=== PATIENT | female | born 1970 | race American Indian/Alaskan Native ===

== ENCOUNTER 2020-02-17 10:41 | Outpatient (CLI) | payer BC, SELFPAY ==
[2020-02-18 17:50] LABS: COVID-19 RT-PCR Result NEGATIVE (Negative)
== END 2020-02-17 11:01 ==
PROVIDERS: PCP Family Medicine; Visit Provider Family Medicine
DX: U07.1 COVID-19 (principal)
CPT/HCPCS: U0003

== ENCOUNTER 2021-08-30 09:19 | Emergency (ER) | payer BC, SELFPAY ==
[2021-08-30] VITALS (42 sets, daily range): BP systolic 90–131; BP diastolic 50–82; PULSE 59–88; RESP 13–25; TEMP 36.8–37.1; O2SAT 92–100
--- NOTE | 2021-08-30 09:15 | RT.EKG_ITS ---
APPROVED REPORT Exam: Resting ECG Reason for Exam: chest pain Patient Location: E HR:63 bpm ECG Measurements Heart Rate 63 AXIS SC 179 P 59 QRSd 78 QRS 39 QT 409 T 35 QTc 418 Conclusion Sinus rhythm...normal P axis, V-rate 60- 99 no STEMI, non-diagnostic EKG I have reviewed and interpreted ECG and agree with software generated interpretation.
--- NOTE | 2021-08-30 09:30 | DI.RAD_ITS ---
Exam(s) XR CHEST 2V PA LATERAL EXAM: XR CHEST 2V PA LATERAL CLINICAL HISTORY: chest pain TECHNIQUE: 2D digital imaging was performed. COMPARISON: No exams were available for comparison FINDINGS: MEDIASTINUM: Normal. HEART: Normal. PULMONARY VASCULATURE: Normal. LUNGS: Clear. PLEURAL SPACE: No pleural effusion or pneumothorax. BONE:Unremarkable for age. IMPRESSION: No acute abnormality. DATA REPOSITORY: RADIATION DOSE DELIVERED:
[2021-08-30 09:59] LABS: Abs Immature Grans 0.03 10^3/uL (0.0-0.06); Absolute Basophil Count 0.07 10^3/uL (0.0-0.2); Absolute Monocyte Count 0.96 10^3/uL (0.1-0.8); Absolute Neutrophil Count 5.63 10^3/uL (1.2-6.7); Basophils % 0.7; HCT 36.8 % (36.0-46.0); Immature Grans % 0.3; Lymphocytes % 33.7; MCH 27.2 pg (27.0-33.0); MCHC 32.6 % (32.0-36.0); MCV 83.4 fL (80-95); MPV 10.6 fL (8.0-11.0); Monocytes % 9.5; Neutrophils % 55.8; Nucleated RBC 0 %; Platelet Count 461 10^3/uL (130-400); RBC 4.41 10^6/uL (3.93-5.22); RDW 15.9 % (11.7-14.6); RDW-SD 46.8 fL; WBC 10.09 10^3/uL (4.4-10.8)
[2021-08-30] MEDS: Lidocaine 5% Patch 1 PATCH TP (10:09)
[2021-08-30 10:13] LABS: ALT 24 U/L (14-59); AST 17 U/L (15-37); Albumin 3.8 g/dL (3.4-5.0); Alkaline Phosphatase 40 U/L (46-116); Anion Gap 4.8 mmol/L (3-11); BUN 22 mg/dL (7-18); Bilirubin, Total 0.5 mg/dL (0.2-1.0); CO2 30.2 mmol/L (21.0-32.0); Calcium 8.5 mg/dL (8.5-10.1); Chloride 104 mmol/L (98-107); Estimated GFR 58.22 (mL/min/1.73m2); Glucose 113 mg/dL (74-106); Magnesium 2.3 mg/dL (1.8-2.4); Potassium 4.2 mmol/L (3.5-5.1); Sodium 139 mmol/L (136-145); Total Protein 6.5 g/dL (6.4-8.2); Troponin I < 50 ng/L (<or=60)
[2021-08-30 10:31] LABS: D-Dimer 602 ng/mlFEU (<500)
--- NOTE | 2021-08-30 10:39 | ED.GENADUL_ITS ---
Discharge Plan Disposition Patient Disposition: HOME Condition: Stable Discharge Details Clinical Impression: Atypical chest pain Primary Care Provider: Sendy Arana ED Provider: Yosvany Rojas Home Meds and New Rx's Prescriptions: Continued lamotrigine 150 mg tablet 150 mg PO DAILY 0RF Label Comments: Take 1 tablet by mouth daily. albuterol sulfate 2.5 mg /3 mL (0.083 %) solution for nebulization 2.5 mg inhalation Q4H PRN [id number] Label Comments: INHALE THE CONTENTS OF ONE VIAL VIA NEBULIZER EVERY 6 HOURS NEEDED FOR WHEEZING norethindrone ac-eth estradiol 1-5 mg-mcg tablet 1 tab PO DAILY 0RF Label Comments: take 1 tablet by mouth once daily albuterol sulfate 90 mcg/actuation HFA aerosol inhaler 2 inh INHALATION Q4H PRN [id number] Label Comments: INHALE ONE PUFF BY MOUTH EVERY 4 HOURS NEEDED FOR WHEEZING sertraline 50 mg tablet 50 mg PO DAILY 0RF Label Comments: Take 1 tablet by mouth daily. estradiol 10 mcg tablet 10 mcg VAGINAL DAILY 0RF Label Comments: insert 1 tablet vaginally two times a week Discharge Instructions Instructions: Chest Pain (ED) Additional Instructions: At this time your cardiac work-up was negative and no evidence of pulmonary involvement. There is high suspicion of chest wall pain secondary to recent activity. You may take ibuprofen as discussed and keep your follow-up appointment with your primary care provider next week. If you have any new or significant worsening of symptoms, worsening chest pain, or further concerns return to the emergency department for reassessment and further evaluation. Referrals: Sendy Arana [Primary Care Provider] - 1 week Discharge Data Discharge Date/Time-TO BE ENTERED AT DEPARTURE: 08/30/21 13:27 Medical Decision Making Patient presenting to the emergency department for chief complaint of worsening chest pain over the past 4 days. 5 days ago patient was playing basketball at work but denies any known injury or trauma. The next day patient noted some mild left-sided reproducible chest pain but also worsened with deep inspiration. 2 weeks ago patient had sensation of limited palpitations that have fully resolved. Pain has gotten progressively worse over the past 4 days with increasing left-sided pain, shortness of breath. Patient denies any history of hypertension, diabetes, hyperlipidemia, and is not a smoker. Physical exam does show reproducible chest pain to palpation of left chest wall. Exam is otherwise unremarkable. We will still plan on performing standard laboratory and EKG work-up for chest pain and will include D-dimer and chest x-ray. Pending results will have lidocaine patch placed on patient as I suspect possible costochondritis versus pectoral strain. Please see physician interpretation of EKG but appears to be in sinus rhythm, no signs of STEMI, otherwise nondiagnostic. Reviewed initial labs that show negative troponin, nondiagnostic CBC with slig htly elevated platelet count 461, D-dimer is 602 and CMP shows slightly increased BUN at 22 glucose 113 alk phos low at 40 otherwise again nondiagnostic. Given elevated D-dimer we will plan on performing chest CTA to rule out PE. Patient was reassessed and stated no improvement of chest pain discomfort. Will order patient fluids given slightly elevated BUN along with morphine and Zofran for discomfort. Review of chest x-ray and radiologist dictation shows no acute abnormality. We will continue to monitor patient. CTA reviewed with radiologist and shows no acute signs of thrombosis and is otherwise nondiagnostic. Patient was reassessed and did state improvement of discomfort but still does have pain. We will continue to monitor and plan on performing 3-hour troponin and EKG. 3-hour EKG performed and please see physician interpretation of EKG but continues to be in sinus rhythm, no signs of STEMI, otherwise nondiagnostic. Delta troponin is also negative. Reassessed patient and she is continuing to have pain mainly with movement and deep inspiration. Differential diagnosis to include costochondritis versus pectoral strain. Plan to treat patient with NSAIDs and patient to follow-up with primary care provider. Patient states that she has an appointment already scheduled for next Monday which I feel is appropriate given negative cardiac work-up and reproducible pain. After discussion of diagnosis and plan of care patient has no further needs, questions, or concerns and states clear understanding to return to the emergency department for any worsening symptoms. Imaging Data Radiologic Study: Imaging: X-Ray Radiologist's impression: IMPRESSION: No acute abnormality Radiologic Study #2: Imaging: CT Scan Radiologist's impression: IMPRESSION: No evidence of pulmonary embolism or other acute abnormality.. Results of this exam have been verbally communicated with emergency department provider. HPI General Mode of arrival: ambulatory . Date/Time Provider Initiated Documentation: 08/30/21 09:30 . Limitations to Documentation: no limitations . Information obtained by: patient . History of Present Illness 51 year old F presents to the emergency department with the chief complaint of Left sided chest pain, described as moderate, with intensity rated at 8. Quality is described as aching and sharp, and is localized to the chest. Patient reports no radiation. Patient started experiencing this day(s) (4) and it has been constant (worsening). improves with No relieving factors improve symptom(s), Movement worsens symptoms . Patient notes shortness of breath; denies fever/chills, syncope and weakness. Patient did receive the following treatments prior to arrival, none Related Data Home Medications Medication Instructions Recorded Confirmed albuterol sulfate 2.5 mg INHALATION Q4H PRN PRN 08/30/21 08/30/21 albuterol sulfate 90 mcg/actuation 2 inh INHALATION Q4H PRN PRN 08/30/21 08/30/21 aerosol inhaler estradiol 10 mcg vaginal tablet 10 mcg VAGINAL DAILY 08/30/21 08/30/21 lamotrigine 150 mg tablet 150 mg PO DAILY 08/30/21 08/30/21 norethindrone acetate 1 mg-ethinyl 1 tab PO DAILY 08/30/21 08/30/21 estradiol 5 mcg tablet sertraline 50 mg tablet 50 mg PO DAILY 08/30/21 08/30/21 Allergies Allergy/AdvReac Type Severity Reaction Status Date / Time oxycodone Allergy Intermediate Dizziness/L Unverified 08/30/21 11:39 ighthead levofloxacin AdvReac Mild Nausea Unverified 08/30/21 11:39 General Stated Complaint: Chest Pain KAMALJIT: 2 Review of Systems Constitutional Constitutional: Denies chills, Denies fever(s) and Denies malaise Cardiovascular Cardiovascular: Reports as per HPI, Reports chest pain, Reports chest pain with activity, Denies syncope, Denies leg edema, Denies lightheadedness, Reports palpitations (2 weeks ago single episode), Reports dyspnea and Reports dyspnea on exertion Respiratory Respiratory: Denies cough, Denies hemoptysis, Reports pain on inspiration, Reports dyspnea and Reports dyspnea on exertion Gastrointestinal Gastrointestinal: Denies abdominal pain, Denies nausea and Denies vomiting Neurologic Neurologic: Denies syncope Psychiatric Psychiatric: Denies anxiety Endocrine Endocrine: Denies cold intolerance, Denies heat intolerance and Reports palpitations (2 weeks ago single episode) [facility] All Active Problems (Updated 08/30/21 @ 13:25 by Yosvany Rojas NP) Atypical chest pain (Acute) Social History Smoking/Tobacco Use Status: Never Smoking risk assessment performed?: Yes Alcohol Intake: current Alcohol Intake frequency: holidays/special occasions only Drug use: Never Do you feel safe at home: Yes Do you feel safe in your relationship?: Yes Exam Const General: cooperative, healthy appearing, comfortable, no acute distress, not diaphoretic and not ill appearing Nutritional Appearance: average body habitus Orientation: alert, awake and oriented x3 Limitations: mental status not altered Neck Neck: normal visual inspection, full ROM, trachea midline, supple and no anterior neck swelling Carotids: normal carotid upstroke and no bruits Chest Chest: tenderness pectoral muscle on the left diffusely Resp Effort & Inspection: normal respiratory effort and able to speak in complete sentences Auscultation: clear to auscultation bilaterally Cardio Jugular venous pressure: no JVD Palpation: normal PMI Rate: regular rate Rhythm: regular rhythm Heart Sounds: S1 normal, S2 normal, no click, no gallops, no murmurs and no rubs Bruits: no abdominal aortic bruits and no carotid bruits Pulses: radial pulses present bilaterally 2+ GI Inspection: normal to inspection Palpation: soft, no aortic enlargement, no pulsatile masses and nontender Auscultation: normal bowel sounds Skin General skin exam: no rashes or lesions noted Neuro General: patient alert, patient awake, patient oriented x3, tone normal and moves all extremities Course Vital Signs Vital signs: Vital Signs Temperature 37.1 C 08/30/21 09:34 Pulse 63 08/30/21 09:34 Respiratory Rate 20 08/30/21 09:34 Blood Pressure 131/74 08/30/21 09:34 Pulse Oximetry 97 08/30/21 09:34 Temperature 37.1 C 08/30/21 09:34 Temperature Source Temporal Artery Scan 08/30/21 09:34 Pulse 63 08/30/21 09:34 Respiratory Rate 15 08/30/21 10:11 Respiratory Effort Non-Labored 08/30/21 10:11 Respiratory Depth Normal 08/30/21 10:11 Respiratory Pattern Normal 08/30/21 10:11 Blood Pressure 131/74 08/30/21 09:34 Blood Pressure Position Supine 08/30/21 09:34 Pulse Oximetry 97 08/30/21 09:34 Oxygen Delivery Method Room Air 08/30/21 09:34 Oxygen Flow Rate 0 08/30/21 09:34 Pain Level 6 08/30/21 10:11 Lab/Test Results Lab/Test Results: Laboratory Tests Range/Units 08/30/21 08/30/21 08/30/21 09:48 09:48 09:48 WBC (4.4-10.8) 10^3/uL 10.09 RBC (3.93-5.22) 10^6/uL 4.41 Hgb (11.2-15.7) g/dL 12.0 Hct (36.0-46.0) % 36.8 MCV (80-95) fL 83.4 MCH (27.0-33.0) pg 27.2 MCHC (32.0-36.0) % 32.6 RDW (11.7-14.6) % 15.9 H Plt Count (130-400) 10^3/uL 461 H MPV (8.0-11.0) fL 10.6 Immature Gran % 0.3 Neutrophils % 55.8 Lymphocytes % 33.7 Monocytes % 9.5 Eosinophils % 0.0 Basophils % 0.7 Nucleated RBC % % 0 Absolute Neutrophils (1.2-6.7) 10^3/uL 5.63 Absolute Lymphocytes (1.2-3.4) 10^3/uL 3.40 Absolute Monocytes (0.1-0.8) 10^3/uL 0.96 H Absolute Eosinophils (0.0-0.7) 10^3/uL 0.00 Absolute Basophils (0.0-0.2) 10^3/uL 0.07 D-Dimer (<500) ng/mlFEU 602 H Sodium (136-145) mmol/L 139 Potassium (3.5-5.1) mmol/L 4.2 Chloride (98-107) mmol/L 104 Carbon Dioxide (21.0-32.0) mmol/L 30.2 Anion Gap (3-11) mmol/L 4.8 BUN (7-18) mg/dL 22 H Creatinine (0.55-1.02) mg/dL 1.0 Estimated GFR/1.73 m2 (mL/min/1.73m2) 58.22 Glucose (74-106) mg/dL 113 H Calcium (8.5-10.1) mg/dL 8.5 Magnesium (1.8-2.4) mg/dL 2.3 Total Bilirubin (0.2-1.0) mg/dL 0.5 AST (15-37) U/L 17 ALT (14-59) U/L 24 Alkaline Phosphatase (46-116) U/L 40 L Troponin I (<or=60) ng/L < 50 Total Protein (6.4-8.2) g/dL 6.5 Albumin (3.4-5.0) g/dL 3.8
[2021-08-30] MEDS: Normal Saline 250 ML 500 ML IV (10:45)
[2021-08-30] MEDS: MORPHine 4 MG/ML SYR IVP (11:04)
[2021-08-30] MEDS: Ondansetron 4 MG/2 ML VIAL IVP (11:05)
--- NOTE | 2021-08-30 11:43 | DI.CT_ITS ---
Exam(s) CT CHEST PE CTA EXAM: CT CHEST PE CTA CLINICAL HISTORY: Chest pain elevated D-dimer. TECHNIQUE: Imaging Protocol: Axial CT angiography was performed with multi-slice acquisition and mu lti-planar reconstructions as well as axial, coronal and sagittal MIP reconstructions. CONTRAST MATERIAL: Intravenous: Omnipaque 350 Contrast volume:78 ml COMPARISON: CR XR CHEST 2V PA LATERAL from 08/30/2021 FINDINGS: Pulmonary Arteries: No evidence of filling defect to suggest pulmonary emboli. Tracheobronchial tree: Patent where visualized. Mediastinum and Vero: No dominant adenopathy or fluid collection. Pulmonary parenchyma: No consolidation or dominant measurable mass. Pleura: No effusion or pneumothorax. Heart: The heart is mildly dilated. No coronary artery calcifications are seen. Aorta: Thoracic aorta non-dilated. No aneurysm. No dissection. Upper abdomen: Unremarkable. Bones: Unremarkable for age. IMPRESSION: No evidence of pulmonary embolism or other acute abnormality.. Results of this exam have been verbally communicated with emergency department provider. RADIATION DOSE DELIVERED: 432.41mGy.cm Total DLP DATA REPOSITORY: All CT scans at this facility are submitted to the National Radiology Data Registry (NRDR) Dose Index Registry (DIR) with the [employer] (A[employer]). RADIATION OPTIMIZATION: All CT scans at this facility use at least one of these dose optimization te chniques: automated exposure control; mA and/or kV adjustment per patient size (includes targeted exa ms where dose is matched to clinical indication); or iterative reconstruction.
[2021-08-30] MEDS: Omnipaque 350 MG/ML 100 ML BTL 78 ML IJ (11:55)
--- NOTE | 2021-08-30 12:15 | RT.EKG_ITS ---
APPROVED REPORT Exam: Resting ECG Reason for Exam: chest pain Patient Location: E HR:66 bpm ECG Measurements Heart Rate 66 AXIS NM 187 P 52 QRSd 75 QRS 51 QT 392 T 36 QTc 412 Conclusion Sinus rhythm...normal P axis, V-rate 60- 99 no STEMI, non-diagnostic EKG I have reviewed and interpreted ECG and agree with software generated interpretation.
[2021-08-30 13:11] LABS: Troponin I < 50 ng/L (<or=60)
[2021-08-30] MEDS: Ketorolac 30 MG/ML VIAL IVP (13:50)
== END 2021-08-30 13:27 | disposition home or self-care (01) ==
PROVIDERS: Emergency Provider Nurse Practitioner Family; PCP Internal Medicine
DX: R07.89 Other chest pain (principal); R79.1 Abnormal coagulation profile; R06.02 Shortness of breath
CPT/HCPCS: 36415; 71275; 80053; 93005; 96361; 96374; 96375; 99285; 71046; 83735; 84484; 85025; 85379; 93010; 99284; J1885; J2270; J2405; J3490

== ENCOUNTER 2022-05-04 12:58 | Emergency (ER) | payer BC, SELFPAY ==
[2022-05-04 13:01] VITALS: BP 132/102; PULSE 94; RESP 18; TEMP 36.8; O2SAT 94
--- NOTE | 2022-05-04 14:21 | NUR.NOTE ---
Nursing Note: Pt moved to P1 for quick evaluation by provider.
[2022-05-04 15:25] LABS: COVID-19 PCR Negative (Negative); Influenza A PCR Negative (Negative); Influenza B PCR Negative (Negative); RSV PCR Negative (Negative)
--- NOTE | 2022-05-04 15:30 | DI.RAD_ITS ---
Exam(s) XR PORTABLE CHEST AP EXAM: XR PORTABLE CHEST AP CLINICAL HISTORY: cough, hx of pneumonia TECHNIQUE: 2D digital imaging was performed of the chest. One image was obtained. An AP view was ob tained. COMPARISON: CR XR CHEST 2V PA LATERAL from 08/30/2021 FINDINGS: MEDIASTINUM: Normal. HEART: Normal. PULMONARY VASCULATURE: Normal. LUNGS: Clear. PLEURAL SPACE: No pleural effusion or pneumothorax. BONE:Within normal limits for the patient's age. OTHER FINDINGS:Normal. IMPRESSION: No acute pulmonary findings. DATA REPOSITORY: RADIATION DOSE DELIVERED:
--- NOTE | 2022-05-04 15:35 | ED.GENADUL_ITS ---
Discharge Plan Disposition Patient Disposition: Home Condition: Improving Discharge Details Chief Complaint: RespSymp Clinical Impression: Cough Primary Care Provider: Sendy Arana ED Provider: Mihir Ervin Home Meds and New Rx's Prescriptions: No Action lamotrigine 150 mg tablet 150 mg PO DAILY Label Comments: Take 1 tablet by mouth daily. albuterol sulfate 2.5 mg /3 mL (0.083 %) solution for nebulization 2.5 mg inhalation Q4H PRN PRN Label Comments: INHALE THE CONTENTS OF ONE VIAL VIA NEBULIZER EVERY 6 HOURS NEEDED FOR WHEEZING norethindrone ac-eth estradiol 1-5 mg-mcg tablet 1 tab PO DAILY Label Comments: take 1 tablet by mouth once daily albuterol sulfate 90 mcg/actuation HFA aerosol inhaler 2 inh INHALATION Q4H PRN PRN Label Comments: INHALE ONE PUFF BY MOUTH EVERY 4 HOURS NEEDED FOR WHEEZING sertraline 50 mg tablet 50 mg PO DAILY Label Comments: Take 1 tablet by mouth daily. estradiol 10 mcg tablet 10 mcg VAGINAL DAILY Label Comments: insert 1 tablet vaginally two times a week Discharge Instructions Instructions: Acute Cough (ED) Additional Instructions: Please follow-up with your primary care physician. Stand Alone Forms: Work Release Medical Decision Making 52-year-old female history of prior pneumonia presents with cough over the past 2 days, fatigue decreased p.o. intake, patient is nontoxic resting comfortably slight expiratory wheeze bilaterally, not hypoxic, nontoxic. High clinical suspicion for viral respiratory illness versus superimposed bacterial pneumonia lower suspicion for ACS PE or other cardiopulmonary pathology at this time. Will obtain screening x-ray, DuoNeb, dexamethasone, close reassessment likely home with follow-up 16: 28 patient resting comfortably feeling better after meds. Likely resolving viral syndrome. Home care instructions and return precautions given. HPI General Date/Time Provider Initiated Documentation: 05/04/22 13:06 . HPI Narrative: 52-year-old female history of prior pneumonia presents with cough over the past 2 days associated with fatigue and decreased p.o. intake, endorses that it feels like her prior pneumonia. Denies any immunosuppressive medications or conditions. Related Data Home Medications Medication Instructions Recorded Confirmed albuterol sulfate 2.5 mg/3 mL 2.5 mg inhalation Q4H PRN PRN 08/30/21 05/04/22 (0.083 %) solution for nebulization albuterol sulfate 90 mcg/actuation 2 inh inhalation Q4H PRN PRN 08/30/21 05/04/22 aerosol inhaler estradiol 10 mcg vaginal tablet 10 mcg vaginal DAILY 08/30/21 05/04/22 lamotrigine 150 mg tablet 150 mg PO DAILY 08/30/21 05/04/22 norethindrone acetate 1 mg-ethinyl 1 tab PO DAILY 08/30/21 05/04/22 estradiol 5 mcg tablet sertraline 50 mg tablet 50 mg PO DAILY 08/30/21 05/04/22 Allergies Allergy/AdvReac Type Severity Reaction Status Date / Time oxycodone Allergy Intermediate Dizziness/L Unverified 05/04/22 13:07 ighthead levofloxacin AdvReac Mild Nausea Unverified 05/04/22 13:07 General Stated Complaint: RespSymp KAMALJIT: 3 Review of Systems Narrative: Review of Systems Constitutional: negative Eyes: negative ENT: negative Cardiovascular: negative Respiratory: cough Gastrointestinal: negative : negative Musculoskeletal: negative Skin: negative Neurologic: negative Psych: negative PFSH All Active Problems (Updated 05/04/22 @ 16:29 by Mihir Ervin MD) Cough (Acute) Social History Smoking/Tobacco Use Status: Never Smoking risk assessment performed?: Yes Alcohol Intake: current Alcohol Intake frequency: holidays/special occasions only Drug use: Never Substance use type: does not use Do you feel safe at home: Yes Do you feel safe in your relationship?: Yes Exam Narrative Exam Narrative: Physical Examination General: alert, awake, cooperative, resting comfortably, no acute distress HEENT: normocephalic, atraumatic; PERRL, EOM intact, conjunctiva normal; no nasal discharge; moist mucous membranes, oral and pharyngeal mucosa normal, tolerating secretions Neck: supple, trachea midline; full ROM Chest: normal to inspection Respiratory: normal respiratory effort, speaking in full sentences, clear to auscultation, no wheezing, rales or rhonchi Cardiac: regular rate, regular rhythm, S1S2 intact, no murmurs rubs or gallops GI: abdomen soft, non-tender, non-distended; no palpable mass or hepatosplenomegaly Skin: no lesions, rashes or trauma appreciated Neuro: AAOx3, normal speech, moving all extremities Psych: Appropriate mood and affect Course Vital Signs Vital signs: Vital Signs Temperature 36.8 C 05/04/22 13:01 Pulse 94 H 05/04/22 13:01 Respiratory Rate 18 05/04/22 13:01 Blood Pressure 132/102 H 05/04/22 13:01 Pulse Oximetry 94 05/04/22 13:01 Temperature 36.8 C 05/04/22 13:01 Temperature Source Oral 05/04/22 13:01 Pulse 94 H 05/04/22 13:01 Respiratory Rate 18 05/04/22 13:01 Respiratory Effort Non-Labored 05/04/22 13:07 Respiratory Depth Normal 05/04/22 13:07 Blood Pressure 132/102 H 05/04/22 13:01 Blood Pressure Position Sitting 05/04/22 13:01 Pulse Oximetry 94 05/04/22 13:01 Oxygen Delivery Method Room Air 05/04/22 13:01 Oxygen Flow Rate 0 05/04/22 13:01 Pain Level 7 05/04/22 13:01
[2022-05-04 15:45] VITALS: RESP 4
[2022-05-04] MEDS: Albuterol/Ipratropium 3 ML UPD VIAL UPD (15:45)
[2022-05-04] MEDS: Dexamethasone 10 MG/ML VIAL IM (15:45)
== END 2022-05-04 16:34 | disposition home or self-care (01) ==
PROVIDERS: Registered Nurse Emergency; Emergency Provider Emergency Medicine; PCP Internal Medicine
DX: R05.9 Cough, unspecified; Z20.822 Contact with and (suspected) exposure to COVID-19
CPT/HCPCS: 87637; 96372; 99284; 71045; J1100; J7620